=== PATIENT | female | born 1995 ===

== ENCOUNTER 2017-12-23 09:17 | Day surgery (SDC) | payer OTHER ==
[2017-12-23] MEDS ORDERED: Lactated Ringer's 500 ML IV ONE (09:50)
[2017-12-23 10:12] VITALS: TEMP 96.7; O2SAT 100
[2017-12-23] MEDS ORDERED: Propofol 10 mg/ml Inj (20 ML) ONE (10:47)
[2017-12-23 11:49] VITALS: BP 117/68; PULSE 90; RESP 14
== END 2017-12-23 12:53 | disposition home or self-care (01) ==
LOC: EDSEX 09:17 → H.ENDO 09:17
PROVIDERS: ATTEND Internal Medicine Gastroenterology
DX: K64.8 Other hemorrhoids (principal); R19.7 Diarrhea, unspecified; G43.909 Migraine, unspecified, not intractable, without status migrainosus; K29.50 Unspecified chronic gastritis without bleeding; R10.13 Epigastric pain
CPT/HCPCS: 43239; 45380; 88305; J2001; J2704; J7120